=== PATIENT | male | born 1975 | race Native Hawaiian/Other Pacific Islander ===

== ENCOUNTER 2019-11-10 13:24 | Emergency (ER) | payer OTHER ==
[~2019-11-10] VITALS: Ht 162.6 cm; Wt 59.0 kg
[2019-11-10 13:54] LABS: PLATELET COUNT 286 K/uL (142-355)
[2019-11-10 13:58] LABS: POTASSIUM 4.4 mmol/L (3.6-5.2)
[2019-11-10 14:18] LABS: PARTIAL THROMBOPLASTIN TIME 26.6 SECONDS (24.5-33.6)
[2019-11-10 15:25] VITALS: BP 156/97; TEMP 98.3
== END 2019-11-10 15:38 | disposition short-term general hospital (02) ==
LOC: ED 13:24
PROVIDERS: Family Medicine
DX: I21.3 ST elevation (STEMI) myocardial infarction of unspecified site (principal); F17.210 Nicotine dependence, cigarettes, uncomplicated
CPT/HCPCS: 36415; 80053; 80307; 81000; 82550; 84484; 85027; 85610; 85730; 93005; 96365; 99285; J1644

== ENCOUNTER 2020-01-20 15:48 | Emergency (ER) | payer OTHER ==
[~2020-01-20] VITALS: Ht 162.6 cm; Wt 59.0 kg
[2020-01-20 15:48] VITALS: TEMP 98
[2020-01-20 16:20] LABS: PLATELET COUNT 306 K/uL (142-355)
[2020-01-20 16:26] LABS: POTASSIUM 4.3 mmol/L (3.6-5.2); SODIUM 136 mmol/L (136-145)
[2020-01-20] MEDS ORDERED: LISI20TA11 PO (16:27)
[2020-01-20] MEDS ORDERED: ASA LOW DOSE81 MG PO (16:27)
[2020-01-20] MEDS ORDERED: CLOP75TA2 PO (16:27)
[2020-01-20 19:15] VITALS: BP 110/74
== END 2020-01-20 19:15 | disposition home or self-care (01) ==
LOC: ED 15:51
PROVIDERS: Family Medicine
DX: F14.129 Cocaine abuse with intoxication, unspecified (principal); F12.929 Cannabis use, unspecified with intoxication, unspecified; R55 Syncope and collapse
CPT/HCPCS: 80053; 80307; 80320; 81000; 82550; 82553; 83605; 84484; 85027; 85610; 93005; 96360; 99284

== ENCOUNTER 2020-03-25 15:44 | Emergency (ER) | payer OTHER ==
[~2020-03-25] VITALS: Ht 162.6 cm; Wt 59.0 kg
[~2020-03-25 15:44] MED LIST: ASA LOW DOSE81 MG PO; CLOP75TA2 PO; LISI20TA11 PO
[2020-03-25 15:58] VITALS: TEMP 98
[2020-03-25 16:40] LABS: PLATELET COUNT 332 K/uL (142-355)
[2020-03-25 16:58] LABS: PARTIAL THROMBOPLASTIN TIME 25.3 SECONDS (24.5-33.6)
[2020-03-25 18:00] VITALS: BP 118/63
[2020-03-25 18:30] LABS: POTASSIUM 3.6 mmol/L (3.6-5.2); SODIUM 131 mmol/L (136-145)
== END 2020-03-25 19:24 | disposition short-term general hospital (02) ==
LOC: ED 15:44
PROVIDERS: Hospitalist
DX: I63.9 Cerebral infarction, unspecified (principal); J32.4 Chronic pansinusitis; Z03.818 Encounter for observation for suspected exposure to other biological agents ruled out; F17.210 Nicotine dependence, cigarettes, uncomplicated
CPT/HCPCS: 80053; 80307; 80320; 81000; 82550; 83605; 83880; 84484; 85027; 85610; 85730; 87040; 87205; 87635; 87651; 93005; 96361; 96365; 96375; 99284; J1956; J2405; U0003

== ENCOUNTER 2020-04-12 08:15 | Emergency (ER) | payer OTHER ==
[~2020-04-12] VITALS: Ht 162.6 cm; Wt 59.0 kg
[2020-04-12 08:25] VITALS: TEMP 97.8
[2020-04-12 08:48] LABS: PLATELET COUNT 355 K/uL (142-355)
[2020-04-12 09:02] LABS: PARTIAL THROMBOPLASTIN TIME 25.3 SECONDS (24.5-33.6)
[2020-04-12 09:42] LABS: POTASSIUM 4.6 mmol/L (3.6-5.2); SODIUM 137 mmol/L (136-145)
[2020-04-12 10:11] VITALS: BP 105/54
== END 2020-04-12 10:30 | disposition home or self-care (01) ==
LOC: ED 08:15
PROVIDERS: Family Medicine
DX: R00.1 Bradycardia, unspecified (principal); G45.8 Other transient cerebral ischemic attacks and related syndromes
CPT/HCPCS: 80053; 82550; 84484; 85027; 85610; 85730; 93005; 99283

== ENCOUNTER 2020-04-29 13:33 | Emergency (ER) | payer OTHER ==
[~2020-04-29] VITALS: Ht 162.6 cm; Wt 59.0 kg
[2020-04-29 13:33] VITALS: TEMP 97.5
[2020-04-29 13:52] VITALS: BP 127/90
[2020-04-29 14:11] LABS: PLATELET COUNT 230 K/uL (142-355)
[2020-04-29 14:20] LABS: POTASSIUM 4.6 mmol/L (3.6-5.2); SODIUM 139 mmol/L (136-145)
== END 2020-04-29 18:02 | disposition home or self-care (01) ==
LOC: ED 13:43
PROVIDERS: Family Medicine
DX: F12.90 Cannabis use, unspecified, uncomplicated (principal); R55 Syncope and collapse
CPT/HCPCS: 80053; 80185; 80307; 81000; 85027; 96360; 99284

== ENCOUNTER 2020-07-02 02:04 | Emergency (ER) | payer OTHER ==
[~2020-07-02] VITALS: Ht 162.6 cm; Wt 67.6 kg
[2020-07-02 02:04] VITALS: TEMP 98.6
[2020-07-02 02:31] LABS: PLATELET COUNT 359 K/uL (142-355)
[2020-07-02 02:39] LABS: POTASSIUM 3.8 mmol/L (3.6-5.2); SODIUM 141 mmol/L (136-145)
[2020-07-02 04:49] VITALS: BP 149/90
== END 2020-07-02 05:07 | disposition home or self-care (01) ==
LOC: ED 02:04
PROVIDERS: Family Medicine
DX: R56.9 Unspecified convulsions (principal)
CPT/HCPCS: 80053; 80185; 84484; 85027; 93005; 99283; 99284

== ENCOUNTER 2020-12-11 16:38 | Emergency (ER) | payer OTHER ==
[~2020-12-11] VITALS: Ht 162.6 cm; Wt 67.6 kg
[2020-12-11 17:25] LABS: PLATELET COUNT 328 K/uL (142-355)
[2020-12-11 17:32] LABS: POTASSIUM 4.3 mmol/L (3.6-5.2); SODIUM 138 mmol/L (136-145)
[2020-12-11 17:35] LABS: PARTIAL THROMBOPLASTIN TIME 27.6 SECONDS (24.5-33.6)
[2020-12-11 19:04] VITALS: BP 96/58; TEMP 98.2
== END 2020-12-11 19:04 | disposition home or self-care (01) ==
LOC: ED 16:38
PROVIDERS: Hospitalist
DX: J06.9 Acute upper respiratory infection, unspecified (principal); U07.1 COVID-19; F17.210 Nicotine dependence, cigarettes, uncomplicated
CPT/HCPCS: 80053; 82550; 83880; 84484; 85027; 85610; 85730; 87635; 93005; 99283; U0003

== ENCOUNTER 2021-05-09 20:43 | Observation (INO) | payer OTHER ==
[~2021-05-09] VITALS: Ht 170.2 cm; Wt 55.4 kg
[2021-05-09 20:57] VITALS: BP 144/86; TEMP 98.7
[2021-05-09 21:19] LABS: PLATELET COUNT 279 K/uL (142-355)
[2021-05-09 21:26] LABS: POTASSIUM 4.1 mmol/L (3.6-5.2)
[2021-05-09 21:44] LABS: PARTIAL THROMBOPLASTIN TIME 27.7 SECONDS (24.5-33.6)
[2021-05-10 00:07] VITALS: BP 150/92; TEMP 97.6; Ht 170.2 cm; Wt 55.4 kg
[2021-05-10 04:00] VITALS: BP 119/79; TEMP 97.9
[2021-05-10 08:00] VITALS: BP 119/77; TEMP 97.6
[2021-05-10 12:00] VITALS: BP 112/73; TEMP 98.5
[2021-05-10 16:00] VITALS: BP 108/67; TEMP 98.5
== END 2021-05-10 17:20 | disposition home or self-care (01) ==
LOC: ED 20:43 → MED/SURG 22:30
PROVIDERS: ADMIT Hospitalist; ATTEND Internal Medicine
DX: R07.89 Other chest pain (principal); Z91.19 Patient's noncompliance with other medical treatment and regimen; Z86.73 Personal history of transient ischemic attack (TIA), and cerebral infarction without residual deficits; I10 Essential (primary) hypertension; G40.802 Other epilepsy, not intractable, without status epilepticus; Z72.0 Tobacco use; K21.9 Gastro-esophageal reflux disease without esophagitis
CPT/HCPCS: 36415; 80053; 80185; 80307; 80320; 81000; 82550; 83880; 84484; 85027; 85610; 85730; 87635; 93005; 99220; 99284; G0378; J1650; J3490; U0003

== ENCOUNTER 2021-11-28 22:49 | Emergency (ER) | payer OTHER ==
[~2021-11-28] VITALS: Ht 170.2 cm; Wt 55.3 kg
[2021-11-28 23:23] LABS: PLATELET COUNT 257 K/uL (142-355)
[2021-11-28 23:26] LABS: POTASSIUM 4.3 mmol/L (3.6-5.2)
[2021-11-29 01:22] VITALS: BP 112/95; TEMP 98.2
== END 2021-11-29 01:22 | disposition home or self-care (01) ==
LOC: ED 22:49
PROVIDERS: Emergency Medicine
DX: R55 Syncope and collapse (principal); Z87.898 Personal history of other specified conditions
CPT/HCPCS: 36415; 80053; 80307; 80320; 82550; 84484; 85027; 93005; 99284

== ENCOUNTER 2022-04-13 10:44 | Emergency (ER) | payer OTHER ==
[~2022-04-13] VITALS: Ht 170.2 cm; Wt 65.8 kg
[2022-04-13 11:57] LABS: PLATELET COUNT 334 K/uL (142-355)
[2022-04-13 16:25] VITALS: BP 157/101; TEMP 98.5
== END 2022-04-13 16:25 | disposition home or self-care (01) ==
LOC: ED 10:44
PROVIDERS: Family Medicine
DX: I16.0 Hypertensive urgency (principal); R41.82 Altered mental status, unspecified; F17.210 Nicotine dependence, cigarettes, uncomplicated
CPT/HCPCS: 36415; 36600; 80053; 80307; 81002; 82805; 83605; 85027; 93005; 99284

== ENCOUNTER 2022-06-14 14:43 | Emergency (ER) | payer OTHER ==
[~2022-06-14] VITALS: Ht 170.2 cm; Wt 65.8 kg
[2022-06-14 15:25] LABS: PLATELET COUNT 268 K/uL (142-355)
[2022-06-14 15:36] LABS: POTASSIUM 4.2 mmol/L (3.6-5.2)
[2022-06-14 23:21] VITALS: TEMP 98.2
[2022-06-15 00:20] VITALS: BP 149/84
== END 2022-06-15 00:20 | disposition home or self-care (01) ==
LOC: ED 14:43
PROVIDERS: Emergency Medicine
DX: G40.909 Epilepsy, unspecified, not intractable, without status epilepticus (principal); G06.2 Extradural and subdural abscess, unspecified; Z98.890 Other specified postprocedural states
CPT/HCPCS: 80053; 80320; 85027; 93005; 96365; 99285; J1953; Q9963

== ENCOUNTER 2022-07-02 13:55 | Emergency (ER) | payer OTHER ==
[~2022-07-02] VITALS: Ht 170.2 cm; Wt 59.9 kg
[2022-07-02 13:57] VITALS: BP 113/69; TEMP 97.7
[2022-07-02 14:17] LABS: PLATELET COUNT 312 K/uL (142-355)
[2022-07-02 14:28] LABS: POTASSIUM 4.1 mmol/L (3.6-5.2)
== END 2022-07-02 18:22 | disposition home or self-care (01) ==
LOC: ED 13:55
PROVIDERS: Emergency Medicine Emergency Medical Services
DX: R07.89 Other chest pain (principal)
CPT/HCPCS: 80053; 83735; 83880; 84484; 85027; 85379; 85610; 93005; 96360; 96361; 99284